=== PATIENT | female | born 1980 | race Caucasian/White ===

== ENCOUNTER 2022-03-02 16:00 | Outpatient (CLI) | payer BC, SELFPAY ==
--- NOTE | ~2022-03-02 | US_ITS ---
EXAMINATION: US thyroid DATE: 03/02/2022 16:55 INDICATION: Goiter TECHNIQUE: Multiple ultrasound images of the thyroid were obtained. COMPARISON: None. FINDINGS: The right thyroid lobe measures 6.0 x 2.3 x 2.0 cm. The left thyroid lobe measures 5.9 x 1.7 x 2.1 c m. 8 mm wider than tall predominately solid hypoechoic nodule with smooth margins (TI-RADS 4, modera tely suspicious , FNA if >=1.5 cm, annual followup is >=1 cm) in the inferior right thyroid. 6 mm wid er than tall solid isoechoic nodule with lobular margins and single echogenic focus (TI-RADS 5, highl y suspicious , FNA if >=1.0 cm, annual followup is >0.5 cm) in the left thyroid lobe. There is a seco nd 7 mm TI RADS 4, wider than tall hypoechoic solid nodule with smooth margins in the left thyroid lo be. IMPRESSION: 1. Multinodular goiter, none meeting criteria for biopsy at this time. But with 6 mm TI RADS 5 nodule for which one-year follow-up ultrasound would be recommended. Reviewed, dictated and finalized at location A. IMPRESSION: 1. Multinodular goiter, none meeting criteria for biopsy at this time. But with 6 mm TI RADS 5 nodule for which one-year follow-up ultrasound would be recomme nded.
== END 2022-03-02 16:01 | disposition home or self-care (01) ==
PROVIDERS: PCP Family Medicine Sports Medicine; Visit Provider Internal Medicine Endocrinology, Diabetes & Metabolism
DX: E04.2 Nontoxic multinodular goiter (principal)
CPT/HCPCS: 76536

== ENCOUNTER → 2023-03-05 13:12 | Outpatient (CLI) | payer BC, SELFPAY ==
--- NOTE | ~2023-03-05 | MM_ITS ---
EXAMINATION: MM screening [facility] BI w vito HISTORY: Screening mammogram TECHNIQUE: Craniocaudal and mediolateral oblique 3-D tomosynthesis images were obtained and synthetic 2-D images were generated. CAD analysis was submitted and interpreted. COMPARISON: None, baseline BREAST PARENCHYMAL COMPOSITION: The breasts are almost entirely fatty. FINDINGS: No suspicious mass, calcification, or architectural distortion are identified in either sarai ast to suggest malignancy. There has been no suspicious interval change. IMPRESSION: 1. No mammographic evidence of malignancy. 2. Recommend routine screening mammography in one year. BI-RADS Category 1: Negative Reviewed, dictated and finalized at location A.
== END ==
PROVIDERS: PCP Obstetrics & Gynecology Gynecology; Visit Provider Obstetrics & Gynecology Gynecology
DX: Z12.31 Encounter for screening mammogram for malignant neoplasm of breast (principal)
CPT/HCPCS: 77063; 77067

== ENCOUNTER 2024-12-31 13:18 | Emergency (ER) | payer OTHER, SELFPAY ==
[2024-12-31 13:26] VITALS: BP 141/84; PULSE 73; RESP 20; TEMP 36.7; O2SAT 98
[2024-12-31 13:49] LABS: EDSTREPNEGPOS1 Negative (Negative)
--- NOTE | 2024-12-31 14:10 | ED_ITS ---
HPI - URI/Sore Throat General Chief Complaint: Upper Respiratory Infection Stated Complaint: Sore Throat Time Seen by Provider: 12/31/24 13:19 Source: patient Mode of arrival: ambulatory Limitations: no limitations History of Present Illness HPI Narrative: Abbey is a 44-year-old female patient presenting to the clinic today with complaints of a sore throat, nasal congestion, and swollen glands. States that symptoms started last night. Did at home COVID testing was negative. Denies any fevers, chills, body aches. Denies any shortness of breath or chest pain. MD elicited complaint: sore throat and nasal congestion Related Data Home Medications ?Medication ?Instructions ?Recorded ?Confirmed ?Last Taken ?Type hydrochlorothiazide 50 mg tablet 50 mg PO DAILY 09/30/20 09/30/20 Unknown History losartan 25 mg tablet 25 mg PO DAILY 09/30/20 09/30/20 Unknown History losartan 50 mg tablet 50 mg PO DAILY 09/30/20 09/30/20 Unknown History sertraline 100 mg tablet (Zoloft) 100 mg PO DAILY 09/30/20 09/30/20 Unknown History Allergies Allergy/AdvReac Type Severity Reaction Status Date / Time Sulfa (Sulfonamide Allergy Hives Verified 12/31/24 13:50 Antibiotics) Review of Systems Review of Systems: Pertinent positives per HPI. Patient denies any fever, chills, rash, headache, visual changes, dizziness, shortness of breath, chest pain, palpitations, nausea, vomiting, diarrhea, constipation, abdominal pain, or any urinary issues. PMFSH Family History Family History (Updated 09/30/20 @ 13:59 by Gina Cisneros CMA) Father Alcohol abuse Diabetes mellitus Hypertension Cerebrovascular accident Mother Alcoholism Cancer Hypertension Depression Heart disease Thyroid condition Sibling Hypertension Grandparent Diabetes mellitus Hypertension Heart disease Thyroid condition Grandparent Hypertension Social History Social History (Updated 09/30/20 @ 13:56 by Gina Cisneros CMA) Smoking status: Never smoker Alcohol intake: current Substance use: never Substance use type: does not use Comments At the time of my signature, I reviewed and agree with the nursing past medical, surgical, social, and family history. There is no relevant family history pertinent to the patient complaint. Exam Narrative: General: Well-developed, well nourished, in no apparent distress Head: Normocephalic, atraumatic Eyes: Pupils equally round and reactive to light bilaterally, EOM intact, sclera and conjunctive clear, no discharge, lids normal Ears: TMs intact and clear, ear canals clear, no drainage, grossly hearing normal. Nose: Nares patent, no discharge, no inflammation, no sinus tenderness. Mouth: Oral pharynx red with bilateral tonsillar enlargement, tonsils touching uvula, without lesions or masses, good dentition, MMM. Neck: Supple, trachea midline, no enlargement of anterior or posterior cervical nodes, no thyroid masses or goiter palpable. Cardio: Regular rate and rhythm, s1 and s2 normal, no murmur appreciated. Resp: Clear to auscultation bilaterally, no rhonchi, rales, wheezing or rubs Course Course Emergency Course: Portions of this record may have been created with voice recognition software. Level of Care: Express Care Visit Vital Signs Vital signs: Vital Signs Temperature 36.7 C 12/31/24 13:26 Pulse Rate 73 12/31/24 13:26 Respiratory Rate 20 12/31/24 13:26 Blood Pressure 141/84 H 12/31/24 13:26 Pulse Oximetry 98 12/31/24 13:26 Oxygen Delivery Room Air 12/31/24 13:26 Temperature 36.7 C 12/31/24 13:26 Pulse Rate 73 12/31/24 13:26 Respiratory Rate 20 12/31/24 13:26 Blood Pressure 141/84 H 12/31/24 13:26 Pulse Oximetry 98 12/31/24 13:26 Oxygen Delivery Room Air 12/31/24 13:26 Vital signs reviewed MDM - URI/Sore Throat MDM Narrative Medical decision making narrative: At the time of visit patient is resting comfortably on the exam table. Patient appears to be nontoxic. Labs: Strep test was negative in the clinic today. We will send strep for culture. Plan: I suspect patient has viral pharyngitis. Prescription for prednisone was sent to the pharmacy. Supportive measures were discussed with the patient and they voiced understanding discharge instructions and agrees to treatment plan. Return precautions reviewed Differential Diagnosis Differential diagnosis: Likely upper respiratory infection, otitis media, sinusitis, viral infection, bronchitis, influenza, pharyngitis and other (COVID) Lab Data Labs: Lab Results 12/31/24 Range/Units 13:43 POC Grp A Strep Screen Negative (Negative) Discharge Plan Discharge Clinical Impression: Pharyngitis Qualifiers: Pharyngitis/tonsillitis etiology: unspecified etiology Qualified Code(s): J02.9 - Acute pharyngitis, unspecified Patient Disposition: Home Condition: Stable Instructions: Antibiotic Form, Pharyngitis (ED) Additional Instructions: Strep test was negative in the clinic today. We will send strep for culture. Take prescription medications only as prescribed-prednisone Increase fluids and stay well hydrated Tylenol/motrin for pain/fever Flonase and OTC antihistamines as directed Vicks vapor rub to open sinuses Sinus rinses for congestion Cepacol spray, cough drops, throat lozenges, warm tea with honey/lemon, gargle salt water to soothe throat BRAT diet for diarrhea Clear liquids x 24 hours then advance as tolerated for nausea/vomiting Go to the ED if you develop a worsening in your condition- high fever not controlled by Tylenol or Motrin, dehydration, weakness, lethargy, shortness of breath, or chest pain. Follow up with your PCP in 3-5 days if symptoms persist. Patient Language: Croatian Prescriptions: New prednisone 20 mg tablet 40 mg PO DAILY 5 Days Qty: 10 0RF No Action sertraline [Zoloft] 100 mg tablet 100 mg PO DAILY losartan 25 mg tablet 25 mg PO DAILY losartan 50 mg tablet 50 mg PO DAILY hydrochlorothiazide 50 mg tablet 50 mg PO DAILY Follow-up/Referrals: Milena,Jasmeet Gomes MD [Primary Care Provider] - Time of Disposition: 13:48 Quality NIHSS Nursing Documentation ED NIHSS nursing documentation: reviewed/agree
== END 2024-12-31 14:04 | disposition home or self-care (01) ==
PROVIDERS: Emergency Provider Nurse Practitioner Family; PCP Family Medicine
DX: J02.9 Acute pharyngitis, unspecified (principal)
CPT/HCPCS: 87081; 87880; 99213; G0463

== ENCOUNTER 2025-03-02 14:56 | Outpatient (CLI) | payer OTHER, SELFPAY ==
--- NOTE | ~2025-03-02 | MM_ITS ---
EXAMINATION: MM screening [facility] BI w vito HISTORY: Screening TECHNIQUE: Craniocaudal and mediolateral oblique 3-D tomosynthesis images were obtained and synthetic 2-D images were generated. CAD analysis was submitted and interpreted. COMPARISON: 03/05/2023 BREAST PARENCHYMAL COMPOSITION: Not Dense: The breasts are almost entirely fatty. FINDINGS: There is no evidence of suspicious mass, calcification, or architectural distortion to suggest malignancy in either breast. There has been no suspicious interval change. IMPRESSION: 1. No mammographic evidence of malignancy. 2. Recommend routine screening mammography in one year. BI-RADS Category 1: Negative Reviewed, dictated and finalized at location O.
== END 2025-03-02 14:57 | disposition home or self-care (01) ==
LOC: MICIMG 14:57
PROVIDERS: PCP Obstetrics & Gynecology Gynecology; Visit Provider Obstetrics & Gynecology Gynecology
DX: Z12.31 Encounter for screening mammogram for malignant neoplasm of breast (principal)
CPT/HCPCS: 77063; 77067